=== PATIENT | female | born 1985 | race Caucasian/White ===

== ENCOUNTER 2018-03-11 13:39 | Inpatient (IN) | payer OTHER ==
[2018-03-14] MEDS ORDERED: Lactated Ringer's 1,000 ML IV SCH (07:08)
[2018-03-14] MEDS ORDERED: Lidocaine 1% (PF) 30 ML VIAL SC PRN (07:08)
[2018-03-14] MEDS ORDERED: Ibuprofen 800 MG TAB PO PRN (07:08)
[2018-03-14] MEDS ORDERED: HYDROcodone/Acetaminophen 5/325 mg Tablet PO PRN ×3 (07:08→12:06)
[2018-03-14] MEDS ORDERED: Acetaminophen 500 MG TAB PO PRN (07:08)
[2018-03-14] MEDS ORDERED: Methylergonovine 0.2 MG/ML VIAL IM PRN (07:08)
[2018-03-14] MEDS ORDERED: Misoprostol 200 MCG TAB PR PRN (07:08)
[2018-03-14] MEDS ORDERED: LR / Pitocin 40 units/1000 ml 1,000 ML IV PRN (07:08)
[2018-03-14] MEDS ORDERED: LR 500 ML/Oxytocin 10 units 500 ML IV SCH (07:08)
[2018-03-14] MEDS ORDERED: Ondansetron HCl/PF 4 MG/2 ML Vial IVP PRN ×3 (07:08→12:06)
[2018-03-14] MEDS ORDERED: Promethazine HCl 25 MG/ML VIAL IM PRN ×2 (07:08→09:58)
[2018-03-14] MEDS ORDERED: Carboprost 250 MCG/ML AMP IM PRN (07:08)
[2018-03-14] MEDS ORDERED: Diphenoxylate HCl/Atropine Tablet PO PRN (07:08)
[2018-03-14 07:48] VITALS: BMI 28.1
[2018-03-14 08:06] LABS: Hemoglobin 11.1 g/dL (12.0-16.0); Mean Corpuscular HGB CONC 35.4 g/dL (32.0-36.0); Mean Corpuscular Hemoglobin 29.5 pg (27.0-31.0); Mean Corpuscular Volume 83.1 fl (81.0-99.0); Platelet Count 211 thou/uL (130-400); RBC Distribution Width 13.2 % (11.5-14.5); Red Blood Cell (RBC) Count 3.78 mill/uL (4.20-5.40); White Blood Cell (WBC) Count 8.3 thou/uL (4.8-10.8)
[2018-03-14 08:41] LABS: HBSAg Index 0.19 S/CO (0-0.99); Hep B Surf Ag Non-Reactive S/CO (NonReactive)
[2018-03-14 08:48] LABS: Syphilis Antibody Nonreactive (Nonreactive); Syphilis Antibody Index 0.04 S/CO (<1.00 Non-Reactive)
[2018-03-14] MEDS ORDERED: DISCONTINUE ALL PREVIOUS NARCOTICS FS SCH (09:45)
[2018-03-14] MEDS ORDERED: Bupivacaine 0.5% 20 ML, fentaNYL Citrate/PF 400 MCG in Sodium Chloride 0.9% 72 ML EPIDURAL SCH (09:45)
[2018-03-14] MEDS ORDERED: diphenhydrAMINE 50 MG/ML VIAL IVP PRN (09:58)
[2018-03-14] MEDS ORDERED: Lactated Ringer's 500 ML IV PRN (09:58)
[2018-03-14] MEDS ORDERED: Eucerin (Mineral Oil/Petrolatum,White) 30 gm Jar TOP PRN (09:58)
[2018-03-14] MEDS ORDERED: Naloxone HCl 0.4 mg/ml Vial IVP PRN ×2 (09:58)
[2018-03-14] MEDS ORDERED: ePHEDrine/0.9% NaCl/PF SYRINGE 50 mg/10 ml SLOW IVP PRN (09:58)
[2018-03-14] MEDS ORDERED: Acetaminophen 325 MG TAB PO PRN (09:58)
[2018-03-14] MEDS ORDERED: Fentanyl 4mcg/Marcaine 0.1% Cassette 100 ML EPIDURAL SCH (10:00)
[2018-03-14] MEDS ORDERED: Communication Order-Pharmacy FS SCH (10:00)
--- NOTE | 2018-03-14 10:08 | PDOC.LDHP ---
Labor and Delivery H&P Chief complaint: scheduled induction HPI: 32yo at 40w3d by LMP for postdate IOL. No complaints. Current gestational age (weeks): 40 Due date: 03/11/18 Dating criteria: last menstrual period Grav: 2 Para: 1 Current complications: none Abnormal US findings: No (EFW 88%) Current medications: pre-adán vitamins Previous surgical history: other (breast fibroadenoma) Allergies/Adverse Reactions: Allergies Allergy/AdvReac Type Severity Reaction Status Date / Time No Known Allergies Allergy Unverified 03/14/18 07:38 Social history: none - Physical Exam Vital signs reviewed and normal: yes General: NAD Heart: RRR Lungs: CTAB Abdomen: gravid Extremeties: no edema FHT: category 1 [place] contractions every: q10min - Vaginal Exam cm dilated: 4 Effacement: 75% Station: -2 (arom clear) - OB Labs RH: negative Antibody Screen: negative HIV: negative RPR: negative HEPSAg: negative 1 hour GCT: positive 3 hour GTT: negative GBS: negative Rubella: immune - Assessment L&D Assessment: medically indicated induction - Plan Plan: admit to L&D, labor augmentation if indicated, informed consent obtained, anesthesia consult for pain management
--- NOTE | 2018-03-14 11:36 | PDOC.OPDEL ---
OB Operative/Delivery Note Delivery Dr/Surgeon: Colleen Assist: n/a Pre-Delivery Diagnosis: medically indicated induction Procedure/Post Delivery Dx: spontaneous vaginal delivery Weeks gestation: 40 Anesthesia: epidural - Findings A Sex: female - 1 min: 9 - 5 min: 10 - Additional Findings/Plan Placenta delivered: spontaneous Repaired Obstetrical Laceration: none Estimated blood loss: 50 Post delivery plan: routine recovery
[2018-03-14] MEDS ORDERED: Benzocaine/Menthol 20-0.5% 60 ML CAN TOP PRN (12:06)
[2018-03-14] MEDS ORDERED: LR / Pitocin 40 units/1000 ml 1,000 ML IV SCH (12:06)
[2018-03-14] MEDS ORDERED: diphenhydrAMINE 25 MG CAP PO PRN (12:06)
[2018-03-14] MEDS ORDERED: Adacel (T-DAP) 0.5 ML VIAL IM ONE (12:06)
[2018-03-14] MEDS ORDERED: Preparation H Ointment 28 GM TUBE PR PRN (12:06)
[2018-03-14] MEDS ORDERED: Bisacodyl 10 MG SUPP PR PRN (12:06)
[2018-03-14] MEDS ORDERED: Lanolin Ointment 7 GM TUBE TOP PRN (12:06)
[2018-03-14] MEDS ORDERED: Milk Of Magnesia 30 ML UDCUP PO PRN (12:06)
[2018-03-14] MEDS: Ibuprofen 800 MG TAB PO SCH ×2 (13:46→21:32)
[2018-03-14] MEDS: Ferrous Sulfate 325 MG TAB PO SCH (18:59)
[2018-03-14] MEDS: Docusate Calcium (SURFAK) 240 MG CAP PO SCH (21:32)
[2018-03-15] MEDS ORDERED: Sodium Chloride 0.9% 10 ML ONE (03:43)
[2018-03-15] MEDS: Ibuprofen 800 MG TAB PO SCH ×3 (05:58→21:14)
[2018-03-15] MEDS: Docusate Calcium (SURFAK) 240 MG CAP PO SCH ×2 (09:42→21:14)
[2018-03-15] MEDS: Prenatal Vitamin 1 TAB PO SCH (09:42)
[2018-03-15] MEDS: Ferrous Sulfate 325 MG TAB PO SCH ×2 (09:42→17:49)
--- NOTE | 2018-03-15 16:39 | PDOC.PP ---
Post Progress Note Post Day #: 1 PO intake tolerated: yes Flatus: yes Ambulation: yes Vital Signs (12 hours) Temp Pulse Resp BP 03/15/18 08:00 98.3 F 56 L 16 106/63 Weight Weight 175 lb - Physical Examination General: NAD Cardiovascular: RRR Respiratory: non-labored breathing Abdominal: no distention, appropriately TTP Neurological: no gross focal deficits Psychiatric: normal affect Result Diagrams: 03/14/18 07:35 Additional Labs: Post Labs Hep Bs Antigen Non-Reactive S/CO (NonReactive) 03/14/18 07:35 (1) Term delivered Code(s): O80 - ENCOUNTER FOR FULL-TERM UNCOMPLICATED DELIVERY Status: Acute - Assessment/Plan PPD1 s/p TSVD VSSAF Doing well bleeding appropriate Rh neg s/p rhogam, RImm Baby under bili lights, Home tomorrow
[2018-03-15] MEDS ORDERED: Bupivacaine 0.25% HCL 30 ML VIAL ONE (20:53)
[2018-03-16] MEDS: Ibuprofen 800 MG TAB PO SCH (05:59)
[2018-03-16 08:02] VITALS: BP 104/67; TEMP 97.7
[2018-03-16] MEDS: Ferrous Sulfate 325 MG TAB PO SCH (08:30)
[2018-03-16] MEDS: Docusate Calcium (SURFAK) 240 MG CAP PO SCH (08:41)
[2018-03-16] MEDS: Prenatal Vitamin 1 TAB PO SCH (08:41)
--- NOTE | 2018-03-16 08:48 | PDOC.PP ---
Post Progress Note Post Day #: 2 PO intake tolerated: yes Flatus: yes Ambulation: yes Vital Signs (12 hours) Temp Pulse Resp BP 03/16/18 07:35 97.7 F 74 18 104/67 Weight Weight 175 lb - Physical Examination General: NAD Cardiovascular: RRR Respiratory: non-labored breathing Fundus firm & at: umb-2 Neurological: no gross focal deficits Psychiatric: normal affect Result Diagrams: 03/14/18 07:35 Additional Labs: Post Labs Hep Bs Antigen Non-Reactive S/CO (NonReactive) 03/14/18 07:35 (1) Term delivered Code(s): O80 - ENCOUNTER FOR FULL-TERM UNCOMPLICATED DELIVERY Status: Acute - Assessment/Plan PPD2 s/p TSVD VSSAF Doing well met all milestones Rh neg sp Rhogam RImm DC home FU 6 wk
== END 2018-03-16 13:20 | disposition home or self-care (01) | DRG 775 ==
LOC: L&D 03-14 06:53 → 3SW 03-14 14:36
PROVIDERS: ADMIT Student in an Organized Health Care Education/Training Program; ATTEND Student in an Organized Health Care Education/Training Program
PROC: 10E0XZZ Delivery of Products of Conception, External Approach (ICD-10-PCS; principal; 2018-03-14)
PROC: 3E033VJ Introduction of Other Hormone into Peripheral Vein, Percutaneous Approach (ICD-10-PCS; 2018-03-14)
PROC: 10907ZC Drainage of Amniotic Fluid, Therapeutic from Products of Conception, Via Natural or Artificial Opening (ICD-10-PCS; 2018-03-14)
DX: O80 Encounter for full-term uncomplicated delivery (principal); Z37.0 Single live birth; Z3A.40 40 weeks gestation of pregnancy
CPT/HCPCS: 36415; 51702; 85027; 85461; 86780; 87340; 90384; 90715; 96372; A4216; J0595; J3010; J3490; J7050; J7120; S0020